=== PATIENT | male | born 1985 | race American Indian/Alaskan Native ===

== ENCOUNTER → 2020-10-31 14:46 | Outpatient (REF) | payer MEDICAID, SELFPAY | LOC: HO.SL 14:46 | PROVIDERS: PCP Family Medicine; Visit Provider Family Medicine | DX: G47.30 Sleep apnea, unspecified (principal) | CPT/HCPCS: 95806 ==

== ENCOUNTER 2020-12-10 21:04 | Emergency (ER) | payer MEDICAID, SELFPAY ==
--- NOTE | ~2020-12-10 | CT_ITS ---
EXAMINATION: CT ABDOMEN AND PELVIS WITHOUT CONTRAST CLINICAL INFORMATION: Right flank pain COMPARISON: CT abdomen December 22, 2006. Abdomen ultrasound October, TECHNIQUE: Multidetector volumetric imaging was performed from the superior aspect of the liver through the pubic symphysis. Sagittal and coronal reformatted images were obtained on the technologist's workstation. This CT examination was performed using dose optimization techniques as appropriate, variously including the following: *Automated exposure control *Adjustment of mA and/or kV according to patient size (this includes techniques or standardized protocols for targeted exams where dose is matched to indication/reason for exam; i.e. extremities or head) *Use of iterative reconstruction technique DLP: 659 mGy-cm FINDINGS: LUNG BASES: The visualized lung bases are unremarkable. LIVER, GALLBLADDER, AND BILIARY TREE: The liver is normal in size, shape, and attenuation. No focal hepatic lesion or biliary ductal dilatation is present. The gallbladder is unremarkable with no evidence of radiopaque gallstones, gallbladder wall thickening, or obvious pericholecystic inflammatory changes. PANCREAS: Unremarkable. SPLEEN: Unremarkable. ADRENAL GLANDS: Unremarkable. KIDNEYS AND URETERS: Right kidney: There is mild to moderate hydronephrosis of the right kidney with distention renal pelvis calyces and hydroureter to the ureterovesical junction. There is a 1 mm stone at the right UVJ. Coronal image 50/90 series 6. There is no additional stone in the ureter or kidney. Left kidney: No hydronephrosis. No renal or ureteral calculus. BLADDER: Unremarkable. GASTROINTESTINAL TRACT: The small and large bowel are unremarkable. The appendix is unremarkable. ABDOMINAL WALL: No significant hernia is appreciated. LYMPH NODES: Normal. VASCULAR: Unremarkable. PELVIC VISCERA: Unremarkable. OSSEOUS STRUCTURES: Unremarkable. CT/CT abdomen pelvis wo con IMPRESSION: Mild to moderate right-sided hydronephrosis with hydroureter. Obstructing 1 mm stone at the right ureterovesical junction.
[2020-12-10 21:06] VITALS: BP 117/69; PULSE 77; RESP 15; TEMP 37; O2SAT 98; BMI 30.7
[2020-12-10 21:25] LABS: Glucose Urine UA NEG (NEG); Leukocyte Esterase Urine NEG (NEG); Nitrite Urine NEG (NEG); Specific Gravity - Urine >= 1.030 (1.005-1.025); Urine Blood 2+ (NEG); Urine Ketones NEG (NEG); Urine Protein NEG (NEG-TRACE)
[2020-12-10 21:26] LABS: Appearance Urine CLEAR; Color Urine YELLOW
[2020-12-10 21:31] LABS: Bacteria Urine 1+ /LPF; Mucus Urine 2+ /LPF; Squamous Epithelial Cell Urine 1+ /LPF
[2020-12-10 22:18] LABS: MANUAL DIFF FLAG NO
--- NOTE | 2020-12-10 22:18 | PC.NURSE ---
PATIENT OBSERVED EATING DORITOS WHEN CALLED IN FOR BLOOD WORK.
[2020-12-10 22:20] LABS: Basophils Absolute Auto 0.1 X10*3/uL (0.0-0.2); Basophils Percent Auto 0.4 % (0-2); Eosinophils Absolute Auto 0.5 X10*3/uL (0.0-0.4); Eosinophils Percent Auto 4.4 % (0-4); Hematocrit 39.2 % (42-52); Hemoglobin 12.7 g/dl (14.0-18.0); Imm Gran Abs Auto 0.03 X10*3/uL (0.00-0.03); Imm Gran Pct Auto 0.3 % (0.0-0.4); Lymphocytes Absolute Auto 1.6 X10*3/uL (1.2-4.9); Lymphocytes Percent Auto 13.9 % (20-40); Mean Corpuscular HGB Conc 32.4 g/dl (31.0-36.0); Mean Corpuscular Hemoglobin 27.6 pg (27.0-33.0); Mean Corpuscular Volume 85.2 fL (80-98); Mean Platelet Volume 10.3 fL (9.4-12.4); Monocytes Absolute Auto 1.1 X10*3/uL (0.1-1.2); Monocytes Percent Auto 9.3 % (2-11); Neutrophils Absolute Auto 8.4 X10*3/uL (2.0-8.3); Neutrophils Percent Auto 71.7 % (45-73); Platelet Count 263 X10*3/uL (160-400); Red Cell Distribution Width 12.2 % (11.0-16.0); White Blood Count 11.8 X10*3/uL (4.8-10.8)
--- NOTE | 2020-12-10 22:35 | PC.NURSE ---
pt eating in waiting room no distress
[2020-12-10 22:48] LABS: Alanine Aminotransferase 20 U/L (0-40); Albumin Level 3.8 g/dL (3.5-5.0); Alkaline Phosphatase 109 U/L (39-117); Anion Gap 12 (12-20); Aspartate Amino Transferase 21 U/L (5-37); Bilirubin Total 0.3 mg/dL (0.0-1.0); Blood Urea Nitrogen 13 mg/dL (9-16); Carbon Dioxide 29 mmol/L (22-29); Chloride 103 mmol/L (96-108); Creatinine Clr Calc Pharmacy 110.6; Estimated Glomerular Filt Rate > 60; Glucose Random 99 mg/dL (60-115); Sodium 140 mmol/L (135-145); Total Protein 7.2 g/dL (6.5-8.0)
--- NOTE | 2020-12-10 23:09 | ED.ABDPAIN ---
HPI - Abdominal Pain General Chief Complaint: Abdominal Pain Stated Complaint: right sided pain Time Seen by Provider: 12/10/20 23:09 Source: patient Mode of arrival: ambulatory Limitations: no limitations History of Present Illness HPI narrative: Patient no significant past medical history complaining of right flank pain for last 3 days getting worse states all the time intermittently get worse still with nausea no hematuria no urinary complaints patient never had similar pain in the past no family history of kidney stone Related Data Previous Rx's Medication Instructions Recorded oxycodone 5 mg PO Q6H PRN #20 tab 12/11/20 tamsulosin [Flomax] 0.4 mg PO DAILY #7 cap 12/11/20 Allergies Allergy/AdvReac Type Severity Reaction Status Date / Time No Known Allergies Allergy Verified 12/10/20 21:12 [No Known Allergies*] Review of Systems Review of Systems Yes all other systems are reviewed and are negative Physical Exam Vital Signs: Vital Signs: Last Vital Signs Temp 98.6 F 12/10/20 21:06 Pulse 77 12/10/20 21:06 Resp 16 12/11/20 00:21 BP 117/69 12/10/20 21:06 Pulse Ox 98 12/10/20 21:06 Body Mass Index 30.7 Appearance: Alert. Oriented X3. In mild distress. Eyes: PERRLA, ENT: Pharynx normal. Oral Mucosa moist Neck: Normal inspection. Neck supple. CVS: Normal heart rate and rhythm. Pulses normal. Respiratory: No respiratory distress. Equal air entry bilateral, no wheezing/rales/rhonchi Abdomen: Soft and nontender. Bowel sounds are present, no mass palpable, right CVA tenderness Skin: Skin warm and dry. Normal skin color. Normal skin turgor. Extremities: No lower extremity edema. No calf tenderness Neuro: Oriented X 3. No motor deficit. MDM - Abdominal Pain MDM Narrative Medical decision making narrative: Patient with right flank pain CT scan showed 1 mm ureteral vesicle stone with mild hydro patient feeling much better after pain medication will discharge patient home Lab Data Attestation: I reviewed the patient's lab results. Result diagrams: 12/10/20 22:11 12/10/20 22:11 Labs: Lab Results 12/10/20 12/10/20 12/10/20 Range/Units 22:11 22:11 Unknown WBC 11.8 H (4.8-10.8) X10*3/uL RBC 4.60 (4.60-5.80) X10*6/uL Hgb 12.7 L (14.0-18.0) g/dl Hct 39.2 L (42-52) % MCV 85.2 (80-98) fL MCH 27.6 (27.0-33.0) pg MCHC 32.4 (31.0-36.0) g/dl RDW 12.2 (11.0-16.0) % Plt Count 263 (160-400) X10*3/uL MPV 10.3 (9.4-12.4) fL Immature Gran % (Auto) 0.3 (0.0-0.4) % Neut % (Auto) 71.7 (45-73) % Lymph % (Auto) 13.9 L (20-40) % Mcmullen % (Auto) 9.3 (2-11) % Eos % (Auto) 4.4 H (0-4) % Baso % (Auto) 0.4 (0-2) % Lymph # (Auto) 1.6 (1.2-4.9) X10*3/uL Mcmullen # (Auto) 1.1 (0.1-1.2) X10*3/uL Eos # (Auto) 0.5 H (0.0-0.4) X10*3/uL Baso # (Auto) 0.1 (0.0-0.2) X10*3/uL Abs Immat Gran (auto) 0.03 (0.00-0.03) X10*3/uL Absolute Neuts (auto) 8.4 H (2.0-8.3) X10*3/uL Absolute Nucleated RBC 0.000 (0.0-0.012) X10*3/uL Nucleated RBC % (auto) 0.0 (0.0-0.2) /100WBC Sodium 140 (135-145) mmol/L Potassium 4.0 (3.3-5.1) mmol/L Chloride 103 (96-108) mmol/L Carbon Dioxide 29 (22-29) mmol/L Anion Gap 12 (12-20) BUN 13 (9-16) mg/dL Creatinine 0.92 (0.5-1.4) mg/dL Estim Creat Clear Calc 110.6 Estimated GFR > 60 Random Glucose 99 (60-115) mg/dL Calcium 9.0 (8.4-10.2) mg/dL Total Bilirubin 0.3 (0.0-1.0) mg/dL AST 21 (5-37) U/L ALT 20 (0-40) U/L Alkaline Phosphatase 109 (39-117) U/L Total Protein 7.2 (6.5-8.0) g/dL Albumin 3.8 (3.5-5.0) g/dL Urine Color YELLOW Urine Appearance CLEAR Urine pH 6.0 (5.0-8.0) Ur Specific [place] >= 1.030 H (1.005-1.025) Urine Protein NEG (NEG-TRACE) MG/DL Urine Glucose (UA) NEG (NEG) MG/DL Urine Ketones NEG (NEG) MG/DL Urine Blood 2+ H (NEG) Urine Nitrite NEG (NEG) Ur Leukocyte Esterase NEG (NEG) Urine RBC 15-29 H (0) /HPF Urine WBC 1-4 (0-4) /HPF Ur Squamous Epith Cells 1+ /LPF Urine Bacteria 1+ /LPF Urine Mucus 2+ /LPF Discharge Plan Discharge Clinical Impression: Calculus of kidney Patient Disposition: Home, Self-Care Instructions: Kidney Stones (ED) Additional Instructions: Drink plenty of fluids. Take pain medication as prescribed. Follow with urologist if not better Your very small stone which likely to pass Prescriptions: New oxycodone 5 mg tablet 5 mg PO Q6H PRN (Reason: Pain (Scale Score 7-10)) Qty: 20 RF: 0 tamsulosin [Flomax] 0.4 mg capsule 0.4 mg PO DAILY Qty: 7 RF: 0 Referrals: Saul Ibarra MD [Physician] - 1 week [facility] Past Medical History Medical History No known health problems Surgical History No history of previous surgery Social History Social History Advance Directives: No Advance Directives Information Provided: No
[2020-12-11] MEDS: ondansetron HCL 4 MG/2 ML VIAL IVPUSH (00:17)
[2020-12-11] MEDS: Ketorolac Tromethamine 30 MG/ML VIAL IVPUSH (00:19)
[2020-12-11 00:21] VITALS: RESP 16
[2020-12-11] MEDS: Morphine Sulfate 4 MG/ML CARTRIDGE IVPUSH (00:21)
[2020-12-11] MEDS: 0.9 % Sodium Chloride 1,000 ML 999 ML IVCONT (00:22)
[2020-12-11] MEDS: Tamsulosin HCL 0.4 MG CAPSULE PO (01:14)
[2020-12-11 01:24] VITALS: RESP 16
[2020-12-11 01:25] VITALS: RESP 16
== END 2020-12-11 01:25 | disposition home or self-care (01) ==
PROVIDERS: Emergency Provider Internal Medicine
DX: N13.2 Hydronephrosis with renal and ureteral calculous obstruction (principal)
CPT/HCPCS: 36415; 74176; 80053; 81001; 85025; 96361; 96374; 96375; 99284; J1885; J2270; J2405

== ENCOUNTER 2023-02-07 12:08 | Outpatient (REF) | payer MEDICAID, SELFPAY ==
[2023-02-07 14:04] LABS: Alanine Aminotransferase 15 U/L (0-40); Albumin Level 4.4 g/dL (3.5-5.0); Alkaline Phosphatase 94 U/L (39-117); Aspartate Amino Transferase 24 U/L (5-37); Bilirubin Direct 0.2 mg/dL (0.0-0.5); Bilirubin Total 0.4 mg/dL (0.0-1.0); Total Protein 7.7 g/dL (6.5-8.0)
[2023-02-11 13:48] LABS: HCV Log PCR <1.18 NOT DETECTED Log IU/mL (NOT DETECTED); HepC Viral Load <15 NOT DETECTED IU/mL (NOT DETECTED)
== END 2023-02-07 12:09 | disposition home or self-care (01) ==
LOC: HO.HHCL 12:08
PROVIDERS: Visit Provider Family Medicine
DX: B18.2 Chronic viral hepatitis C (principal)
CPT/HCPCS: 36415; 80076; 87522

== ENCOUNTER 2024-01-17 15:48 | Emergency (ER) | payer MEDICAID, SELFPAY ==
--- NOTE | ~2024-01-17 | CT_ITS ---
EXAMINATION: CT FACIAL BONES WITH CONTRAST CLINICAL INFORMATION: R nasal maxillary pain, eval for abscess COMPARISON: None available. TECHNIQUE: Multidetector volumetric imaging was obtained through the facial bones following intravenous administration of 85 mL Omnipaque 350. Multiplanar reformatted images in coronal and sagittal orientations were submitted. This CT examination was performed using dose optimization techniques as appropriate, variously including the following: *Automated exposure control *Adjustment of mA and/or kV according to patient size (this includes techniques or standardized protocols for targeted exams where dose is matched to indication/reason for exam; i.e. extremities or head) *Use of iterative reconstruction technique DLP: 335 mGy-cm FINDINGS: Mucosal thickening is noted throughout the paranasal sinuses. 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 The right inferior turbinate is diminutive, likely due to partial erosion. No discrete abscess is identified. There is mucosal thickening in the maxillary sinuses. Paranasal sinuses are otherwise clear. Mastoid air cells are clear. No appreciable dental caries are apical periodontitis. Enlarged cervical lymph nodes are present bilaterally, most likely reactive in nature. No acute nasopharyngeal or pharyngeal abnormalities. Orbits are unremarkable. Imaged intracranial structures are unremarkable. Carotid vasculature is patent. Degenerative disc disease in the cervical spine is partially imaged. 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 No discrete abscess is identified. Surrounding mucosal thickening throughout the nasal cavities.
--- NOTE | 2024-01-17 16:05 | ED.GENADULT ---
HPI - General Adult General Chief complaint: Headache Stated complaint: headache Time Seen by Provider: 01/17/24 16:05 Source: patient and family Limitations: no limitations History of Present Illness HPI narrative: 38-year-old male who has a history of kidney stones, currently on methadone maintenance, history of cocaine abuse, presents for evaluation of right-sided facial pain and headache. Patient states his symptoms began on January 13. At that time he had snorted cocaine and was picking the right nare with his finger. He had mild discomfort at that time, episodes of epistaxis, however the next day he awoke with pain to the right side of his nose and progressively worsening headache. Since that time he has had continued and progressively worsening headache. Patient has been taking Tylenol ibuprofen which initially helped but is no longer helping. Patient states he has constant, 10/10 pressure and pain to the right side of his face extending to the right side of his head. Denies any visual changes. No tinnitus. No lightheadedness or dizziness. Denies any trauma. No fevers chills nausea or vomiting. He denies any history of similar symptoms. No history of headaches. He smokes tobacco. Occasional alcohol use. He is compliant with his methadone. He occasionally uses cocaine. Patient has otherwise been feeling well. Of note, patient had also been using Afrin which was making his symptoms worse. Related Data Previous Rx's ?Medication ?Instructions ?Recorded oxycodone 5 mg tablet 5 mg PO Q6H PRN Pain (Scale Score 12/11/20 7-10) #20 tabs tamsulosin 0.4 mg capsule (Flomax) 0.4 mg PO DAILY #7 caps 12/11/20 amoxicillin 500 mg-potassium 1 tab PO TID 7 days #21 tabs 01/17/24 clavulanate 125 mg tablet (Augmentin) naproxen 500 mg tablet 500 mg PO BID PRN pain 7 days #14 01/17/24 tabs Allergies Allergy/AdvReac Type Severity Reaction Status Date / Time No Known Allergies Allergy Verified 01/17/24 16:26 [No Known Allergies*] Review of Systems Constitutional: Constitutional: Denies chills, Denies fever(s) and Reports headache(s) Eyes: Eyes: Denies blurry vision, Denies change in vision and Denies other (No redness.) ENT: Denies dizziness, Reports headache(s), Reports epistaxis, Reports nasal congestion, Reports nasal discharge, Denies neck pain and Denies sore throat Cardiovascular: Cardiovascular: Denies chest pain, Denies dyspnea, Denies dyspnea on exertion and Denies orthopnea Respiratory: Respiratory: Denies cough, Denies dyspnea and Denies dyspnea on exertion Musculoskeletal: Musculoskeletal: Denies back pain, Denies muscle weakness, Denies neck pain and Denies numbness Integumentary/Breasts: Skin/Breast: Denies rash Neurologic: Denies dizziness, Reports headache(s), Denies focal weakness and Denies numbness Psychiatric: Psychiatric: Denies depression [facility] Past Medical History Attestation statement: The following information was validated with the patient. [facility] Narrative: Kidney stone Medical History No known health problems Surgical History No history of previous surgery Social History Social History Advance Directives: No Advance Directives Information Provided: No Do you have a plan to hurt others: No Plan Physical Exam ED Vital Signs: Vital Signs - 24 hr 01/17/24 16:21 01/17/24 20:00 Temperature 98.7 F 97.6 F Pulse Rate 65 51 Respiratory Rate 18 12 Blood Pressure 153/100 H 104/61 Pulse Oximetry 99 96 Oxygen Delivery Method Room Air Room Air BMI result Body Mass Index 32.7 Const Other: Appears uncomfortable General: alert and awake [facility] Other: Pupils are equal round and reactive to light. There is no nystagmus. There is no erythema to the bridge of the nose or nares or maxillary region. There is diffuse tenderness along the right maxillary and nasal region without any edema or erythema. There is exquisite tenderness to the right side of the nose. No fluctuance. The left naris is patent. There is partial loss of the superior aspect of the septum. The right nare demonstrates edematous and erythematous, slightly excoriated area. There is no active discharge or bleeding. There is no septal hematoma. Oropharynx is moist. There is no tongue elevation or edema. No tonsillar exudate. No hoarseness. Teeth are in good repair. There is no tenderness to tapping. Auditory canals are patent. TM is pearly white bilaterally. There is no mastoid tenderness bilaterally Neck Other: No Brudzinski Resp Other: Lung sounds are clear and equal bilaterally, no wheezes rales or rhonchi Cardio Rate: regular rate Rhythm: regular rhythm Course Course Course Narrative: 6:23 p.m. labs returned, no acute process. CT pending at this time. 8:10 p.m. patient is resting comfortably at this time. CT is pending at this time. 10:[address] returned, no evidence of abscess. Patient will be placed on antibiotics, Augmentin. He tolerated his 1st dose earlier as well as analgesia. Patient states he is feeling better. He remains hemodynamically stable and afebrile. He is neurologically intact. Reviewed all discharge instructions with the patient and his family member. They expressed understanding of all discharge instructions and have no further questions at this time. Medications Administered Discontinued Medications Generic Name Dose Route Start Last Admin Trade Name Freq PRN Reason Stop Dose Admin Sodium Chloride 1,000 mls @ 999 mls/hr 01/17/24 16:45 01/17/24 20:39 Ns IV 01/17/24 17:45 Infused .Q1H1M DEL Infusion Ceftriaxone Sodium 1 gm/ 50 mls @ 100 mls/hr 01/17/24 16:42 01/17/24 18:10 Sodium Chloride IV 01/17/24 17:11 Infused ONCE ONE Infusion Iohexol 85 ml 01/17/24 19:26 01/17/24 19:26 Iohexol 350 Mg/Ml 100 Ml Infus..Btl IV 01/17/24 19:27 85 ml ONCE ONE Administration Ketorolac Tromethamine 15 mg 01/17/24 16:35 01/17/24 18:00 Ketorolac Tromethamine 15 Mg/Ml Vial IVPUSH 01/17/24 16:36 15 mg ONCE ONE Administration Morphine Sulfate 4 mg 01/17/24 20:52 01/17/24 21:06 Morphine Sulfate 4 Mg/Ml Cartridge IVPUSH 01/17/24 20:53 4 mg ONCE ONE Administration Protocol Medical Decision Making Medical Decision Making MDM Narrative: 38-year-old male with a 3 day history of right-sided nasal, facial pain with associated headache. Likely due to recent digital trauma and snorting cocaine. The patient is hemodynamically stable and he is afebrile. Concern for possible sinusitis or abscess or possibly necrotic area. Check labs, imaging. Patient will be provided with analgesia. Less likely migraine headache given that patient does not have a history. He does not have any other infectious signs or symptoms. Localized to the right side of the nose and face. Differential Diagnosis Differential Diagnoses: The differential diagnosis associated with the presentation includes Sinus abscess Necrotic sinus Nasal abscess Bacteremia Admission/Observation Consideration of admission/observation: Escalation of care including admission/observation considered Lab Data MDM Lab Attestation statement: I reviewed the patient's lab results. 01/17/24 17:13 01/17/24 17:13 Labs: Lab Results 01/17/24 Range/Units 17:13 WBC 10.4 (4.8-10.8) X10*3/uL RBC 4.98 (4.60-5.80) X10*6/uL Hgb 13.9 L (14.0-18.0) g/dl Hct 41.8 L (42.0-52.0) % MCV 83.9 (80.0-98.0) fL MCH 27.9 (27.0-33.0) pg MCHC 33.3 (31.0-36.0) g/dl RDW 12.6 (11.0-16.0) % Plt Count 252 (160-400) X10*3/uL MPV 10.5 (9.4-12.4) fL Immature Gran % (Auto) 0.3 (0.0-0.4) % Neut % (Auto) 60.3 (45-73) % Lymph % (Auto) 22.1 (20-40) % Todd % (Auto) 9.3 (2-11) % Eos % (Auto) 7.4 H (0-4) % Baso % (Auto) 0.6 (0-2) % Lymph # (Auto) 2.3 (1.2-4.9) X10*3/uL Todd # (Auto) 1.0 (0.1-1.2) X10*3/uL Eos # (Auto) 0.8 H (0.0-0.4) X10*3/uL Baso # (Auto) 0.1 (0.0-0.2) X10*3/uL Abs Immat Gran (auto) 0.03 (0.00-0.03) X10*3/uL Absolute Neuts (auto) 6.3 (2.0-8.3) x10*3/uL Absolute Nucleated RBC 0.000 (0.0-0.012) X10*3/uL Nucleated RBC % (auto) 0.0 (0.0-0.2) /100WBC Sodium 139 (135-145) mmol/L Potassium 4.1 (3.3-5.1) mmol/L Chloride 105 (96-108) mmol/L Carbon Dioxide 25 (22-29) mmol/L Anion Gap 13 (12-20) BUN 10 (9-16) mg/dL Creatinine 0.73 (0.5-1.4) mg/dL Estim Creat Clear Calc 139.4 Estimated GFR > 60 Random Glucose 107 (60-115) mg/dL Lactic Acid 0.8 (0.5-2.0) mmol/L Calcium 9.6 D (8.4-10.2) mg/dL Total Bilirubin 0.3 (0.0-1.0) mg/dL AST 13 (5-37) U/L ALT 9 (0-40) U/L Alkaline Phosphatase 102 (39-117) U/L Total Protein 8.1 H (6.5-8.0) g/dL Albumin 4.1 (3.5-5.0) g/dL Radiology Impression Discussion of test interpretation with radiology: I have reviewed the radiologist's reading. Radiologist Impression: [place] [id number] CT Scan Report Signed Patient: Eliseo Baker MR#: [id number] : 1985 Acct:[id number] Age/Sex: 38 / M ADM Date: 01/17/24 Loc: HO.ED Attending Dr: Ordering Physician: Floyd Tucker Date of Service: 01/17/24 Procedure(s): CT facial bones w IV con Accession Number(s): [id number] cc: [facility]; Floyd Tucker~ EXAMINATION: CT FACIAL BONES WITH CONTRAST CLINICAL INFORMATION: R nasal maxillary pain, eval for abscess COMPARISON: None available. TECHNIQUE: Multidetector volumetric imaging was obtained through the facial bones following intravenous administration of 85 mL Omnipaque 350. Multiplanar reformatted images in coronal and sagittal orientations were submitted. This CT examination was performed using dose optimization techniques as appropriate, variously including the following: *Automated exposure control *Adjustment of mA and/or kV according to patient size (this includes techniques or standardized protocols for targeted exams where dose is matched to indication/reason for exam; i.e. extremities or head) *Use of iterative reconstruction technique DLP: 335 mGy-cm FINDINGS: Mucosal thickening is noted throughout the paranasal sinuses. 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 The right inferior turbinate is diminutive, likely due to partial erosion. No discrete abscess is identified. There is mucosal thickening in the maxillary sinuses. Paranasal sinuses are otherwise clear. Mastoid air cells are clear. No appreciable dental caries are apical periodontitis. Enlarged cervical lymph nodes are present bilaterally, most likely reactive in nature. No acute nasopharyngeal or pharyngeal abnormalities. Orbits are unremarkable. Imaged intracranial structures are unremarkable. Carotid vasculature is patent. Degenerative disc disease in the cervical spine is partially imaged. 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 No discrete abscess is identified. Surrounding mucosal thickening throughout the nasal cavities. Dictated By: Rajesh Avilez MD Signed By: <Electronically signed by Rajesh Avilez MD in OV> 01/17/242116 DD/ 28 TD/TT: [employer] Specialist: DARÍO Independent Historian Clinical information obtained from an independent historian. History obtained from or confirmed by: Friend Prescription Management I considered prescription management with: Pain Medication and Antibiotic Social Determinants Patient?s care significantly limited by Social Determinants of Health including: Alcoholism and drug addiction in family Discharge Plan Discharge Clinical Impression: Facial pain, Cocaine abuse Sinusitis Qualifiers: Sinusitis location: unspecified location Chronicity: acute Recurrence: non-recurrent Qualified Code(s): J01.90 - Acute sinusitis, unspecified Patient Disposition: Home, Self-Care Instructions: Cocaine Abuse (ED), Rhinosinusitis (ED) Additional Instructions: Augmentin as directed. Finish all antibiotics. Naproxen as directed for pain and inflammation. Take with food. You may use nasal spray to help moisturize the sinuses. Avoid all cocaine use. Do NOT use Afrin as this could make it worse. Follow-up with ENT specialist Follow-up with your primary care provider. Call this week to schedule a follow-up appointment. Return to the emergency department if you have any worsening of symptoms, or any concerns. Get well soon! Prescriptions: New amoxicillin-pot clavulanate [Augmentin] 500-125 mg tablet 1 tab PO TID 7 Days Qty: 21 0RF naproxen 500 mg tablet 500 mg PO BID PRN (Reason: pain) 7 Days Qty: 14 0RF Rx Instructions: Take with food. No Action oxycodone 5 mg tablet 5 mg PO Q6H PRN (Reason: Pain (Scale Score 7-10)) Qty: 20 0RF tamsulosin [Flomax] 0.4 mg capsule 0.4 mg PO DAILY Qty: 7 0RF Referrals: Arcelia Coe MD [Physician] - 1 week Print Language: Algerian
[2024-01-17 16:21] VITALS: BP 153/100; PULSE 65; RESP 18; TEMP 37.1; O2SAT 99; BMI 32.7
[2024-01-17 17:20] LABS: MANUAL DIFF FLAG NO
[2024-01-17 17:28] LABS: Basophils Absolute Auto 0.1 X10*3/uL (0.0-0.2); Basophils Percent Auto 0.6 % (0-2); Eosinophils Absolute Auto 0.8 X10*3/uL (0.0-0.4); Eosinophils Percent Auto 7.4 % (0-4); Hematocrit 41.8 % (42.0-52.0); Hemoglobin 13.9 g/dl (14.0-18.0); Imm Gran Abs Auto 0.03 X10*3/uL (0.00-0.03); Imm Gran Pct Auto 0.3 % (0.0-0.4); Lymphocytes Absolute Auto 2.3 X10*3/uL (1.2-4.9); Lymphocytes Percent Auto 22.1 % (20-40); Mean Corpuscular HGB Conc 33.3 g/dl (31.0-36.0); Mean Corpuscular Hemoglobin 27.9 pg (27.0-33.0); Mean Corpuscular Volume 83.9 fL (80.0-98.0); Mean Platelet Volume 10.5 fL (9.4-12.4); Monocytes Percent Auto 9.3 % (2-11); Neutrophils Absolute Auto 6.3 x10*3/uL (2.0-8.3); Neutrophils Percent Auto 60.3 % (45-73); Platelet Count 252 X10*3/uL (160-400); Red Blood Count 4.98 X10*6/uL (4.60-5.80); Red Cell Distribution Width 12.6 % (11.0-16.0); White Blood Count 10.4 X10*3/uL (4.8-10.8)
[2024-01-17 17:32] LABS: Lactic Acid 0.8 mmol/L (0.5-2.0)
[2024-01-17 17:37] LABS: Alanine Aminotransferase 9 U/L (0-40); Albumin Level 4.1 g/dL (3.5-5.0); Alkaline Phosphatase 102 U/L (39-117); Anion Gap 13 (12-20); Aspartate Amino Transferase 13 U/L (5-37); Bilirubin Total 0.3 mg/dL (0.0-1.0); Blood Urea Nitrogen 10 mg/dL (9-16); Calcium 9.6 mg/dL (8.4-10.2); Carbon Dioxide 25 mmol/L (22-29); Chloride 105 mmol/L (96-108); Creatinine Clr Calc Pharmacy 139.4; Estimated Glomerular Filt Rate > 60; Glucose Random 107 mg/dL (60-115); Potassium 4.1 mmol/L (3.3-5.1); Sodium 139 mmol/L (135-145); Total Protein 8.1 g/dL (6.5-8.0)
[2024-01-17] MEDS: Ketorolac Tromethamine 15 MG/ML VIAL IVPUSH (18:00)
[2024-01-17] MEDS: cefTRIAXone sodium 1 GM in 0.9 % Sodium Chloride 50 ML IV (18:03)
[2024-01-17] MEDS: 0.9 % Sodium Chloride 1,000 ML 999 ML IV (18:13)
[2024-01-17] MEDS: iohexoL 350 MG/ML 100 ML INFUS..BTL 85 ML IV (19:26)
[2024-01-17 20:00] VITALS: BP 104/61; PULSE 51; RESP 12; TEMP 36.4; O2SAT 96
[2024-01-17] MEDS: Morphine Sulfate 4 MG/ML CARTRIDGE IVPUSH (21:06)
[2024-01-17 22:25] VITALS: BP 121/79; PULSE 53; RESP 16; TEMP 36.7; O2SAT 99
[2024-01-17 22:32] VITALS: BP 121/79; PULSE 53; RESP 16; TEMP 36.7; O2SAT 99
== END 2024-01-17 22:32 | disposition home or self-care (01) ==
PROVIDERS: Physician Assistant; Emergency Provider Emergency Medicine
DX: F14.10 Cocaine abuse, uncomplicated (principal); R51.9 Headache, unspecified; J01.90 Acute sinusitis, unspecified
CPT/HCPCS: 36415; 70487; 80053; 83605; 85025; 96361; 96374; 96375; 99284; J0696; J1885; J2270; Q9967

== ENCOUNTER 2024-04-23 17:46 | Emergency (ER) | payer OTHER, SELFPAY ==
[2024-04-23 18:19] VITALS: BP 125/73; PULSE 80; RESP 16; TEMP 36.8; O2SAT 100; BMI 32.4
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
[2024-04-23 20:02] VITALS: BP 118/74; PULSE 65; RESP 16; TEMP 36.9; O2SAT 98
[2024-04-23 20:04] VITALS: BP 118/74; PULSE 65; RESP 16; TEMP 36.9; O2SAT 98
== END 2024-04-23 20:05 | disposition home or self-care (01) ==
PROVIDERS: Emergency Provider Internal Medicine
DX: S16.1XXA Strain of muscle, fascia and tendon at neck level, initial encounter (principal); S46.911A Strain of unspecified muscle, fascia and tendon at shoulder and upper arm level, right arm, initial encounter; V43.62XA Car passenger injured in collision with other type car in traffic accident, initial encounter; Y93.89 Activity, other specified; Y92.414 Local residential or business street as the place of occurrence of the external cause; Y99.9 Unspecified external cause status
CPT/HCPCS: 99283

== ENCOUNTER 2024-05-27 11:31 | Outpatient (REF) | payer OTHER, SELFPAY ==
[2024-05-27 13:32] LABS: Cholesterol 194 mg/dL (<200); HDL Cholesterol 58 mg/dL (>40); LDL Cholesterol Calculated 121 mg/dL (<100); Triglycerides 75 mg/dL (<150)
== END 2024-05-27 11:32 | disposition home or self-care (01) ==
LOC: HO.HHCL 11:31
PROVIDERS: Visit Provider Registered Nurse
DX: I10 Essential (primary) hypertension (principal)
CPT/HCPCS: 36415; 80061

== ENCOUNTER 2024-11-19 13:39 | Outpatient (REF) | payer MEDICAID, SELFPAY ==
--- OUTSIDE RECORDS SUMMARY | 2024-11-19 09:15 | XMS_ITS | Encounter Summary ---
Author Organization [employer] Address [address] [place] [address] [address] [place] [address] Care Team Providers Care Director Targeted Marketing Name Role Phone [facility] Primary Care Provider [phone] Reason for Visit * Reason Comments Follow-up Encounter Details Date Type Department Care Team ([facility] Contact Info) Description 11/19/2024 9:15 AM EDT Office Visit [facility] [address] [place], [place] [id number] [facility] [address] [place] [address] Polyuria (Primary Dx); Dietary counseling; Exercise counseling; Class 1 obesity due to excess calories with serious comorbidity and body mass index (BMI) of 32.0 to 32.9 in adult; Tobacco use; Encounter for immunization Social History Tobacco Use Types Packs/Day Years Used Date Smoking Tobacco: Every Day Cigarettes Smokeless Tobacco: Never Tobacco Cessation:Ready to Q uit: Not Asked; Counseling Given: Not Answered Alcohol Use Standard Drinks/Week Comments Yes 2 (1 standard drink = 0.6 oz pur e alcohol) once a month Depression Answer Date Recorded Patient Health Questionnaire-9 Score 0 11/19/2024 Patient Health Questionnaire-9 Score 0 11/19/2024 Last PHQ-9: Questionnaire Data Not on file 0 11/19/2024 Housing Stability Answer Date Recorded What is your housing situation today? I have dilcia luna 11/19/[address] you li ve. Do you have problems with any of the following? None of the above 11/19/2024 Food Insecurity Answer Date Recorded Within the past 12 months, y ou worried that your food would run out before you got money to buy more: Never True 11/10/2024 Within the past 12 months,th e food you bought just didn't last and you didn't have enough money to get more: Never True 04/2025 Transportation Answer Date Recorded In the past 12 months, has l ack of transportation kept you from medical appts, meetings, work or from getting things needed for daily living? No 11/19/2024 Utilities Answer Date Recorded In the past 12 months, has t he [employer], gas, oil or water [employer] threatened to shut off services in your home? No 11/10/2024 Depression Answer Date Recorded Patient Health Questionnaire-2 Score 0 11/19/2024 Internet Access Answer Date Recorded Internet Access Q1 Yes 11/10/2024 Internet Access Q2 Not on file 11/10/2024 Sex and Gender Information Value Date Recorded Sex Assigned at Male 04/01/2022 10:17 AM EDT Legal Sex Male 10:17 AM EDT Gender Identity Male 04/01/2022 10:17 AM EDT Sexual Orientation Straight 04/01/2022 10 :17 AM EDT documented as of this encounter Last Filed Vital Signs Vital Sign Reading Time Taken Comments Blood Pressure 132/88 11/19/2024 9:28 AM EDT Pulse 86 11/19/2024 9:28 AM EDT Temperature 36.2 C (97.2 F) 11/19/2024 9:28 AM EDT Respiratory Rate 20 11/19/2024 9:28 AM EDT Oxygen Saturation - - Inhaled Oxygen Concentration - - Weight 92.4 kg (203 lb 12.8 oz) 11/19/2024 9:28 AM EDT Height 167.6 cm (5' 6 ) 11/19/2024 9:28 AM EDT Body Mass Index 32.89 11/19/2024 9:28 AM EDT documented in this encounter Functional Status * Over the past 2 weeks, how often have you been bothered by any of the following problems? Question Answer Date of Assessment Author Patient Health Questionnaire-2 Score 0 11/19/2024 9:33 AM EDT Pamela Corrigan MA * Little interest or pleasure in doing things Answer Date of Assessment Author Not at all 11/19/2024 9:33 AM Pamela Davis MA * Feeling down, depressed, or hopeless Answer Date of Assessment Author Not at all 11/19/2024 9:33 AM Pamela Davis MA * Trouble falling or staying asleep, or sleeping too much Answer Date of Assessment Author Not at all 11/19/2024 9:33 AM Pamela Davis MA * Feeling tired or having little energy Answer Date of Assessment Author Not at all 11/19/2024 9:33 AM Pamela Davis MA * Poor appetite or overeating Answer Date of Assessment Author Not at all 11/19/2024 9:33 AM Pamela Davis MA * Feeling bad about yourself - or that you are a failure or have let yourself or your family down Answer Date of Assessment Author Not at all 11/19/2024 9:33 AM Pamela Davis MA * Trouble concentrating on things, such as reading the newspaper or watching television Answer Date of Assessment Author Not at all 11/19/2024 9:33 AM Pamela Davis MA * Moving or speaking so slowly that other people could have noticed? Or the opposite - being so fidgety or restless that you have been moving around a lot more than usual. Answer Date of Assessment Author Not at all 11/19/2024 9:33 AM Pamela Davis MA * Thoughts that you would be better off or hurting yourself in some way Answer Date of Assessment Author Not at all 11/19/2024 9:33 AM Pamela Davis MA * Patient Health Questionnaire-9 Score Answer Date of Assessment Author 0 11/19/2024 9:33 AM Pamela Davis MA * Over the last 2 weeks, how often have you been bothered by any of the following problems? Question Answer Date of Assessment Author Feeling nervous, anxious, or on edge 0 11/19/2024 9:33 AM Pamela Thomson MA Not being able to stop or control worrying 0 11/19/2024 9:33 AM EDT Pamela Corrigan MA Worrying too much about different things 0 11/19/2024 9:33 AM EDT Pamela Corrigan MA Trouble relaxing 0 11/19/2024 9:33 AM EDT Pamela Borrero MA Being so restless that it is hard to sit still 0 11/19/2024 9:33 AM EDT Pamela Corrigan MA Becoming easily annoyed or irritable 0 11/19/2024 9:33 AM EDT Pamela Corrigan MA Feeling afraid as if something awful might happen 0 11/19/2024 9:33 AM EDT Pamela Shaikh MA LÓPEZ-7 Total Score 0 11/19/2024 9:33 AM EDT Pamela Corrigan MA documented as of this encounter Plan of Treatment Scheduled Orders Name Type Priority Associated Diagnoses Orde r Schedule Comprehensive Metabolic Panel Lab Routine Polyuria Expected: 11/19/2024 (Approximate), Expires: 11/19/2025 Urinalysis, Complete, with Reflex to Culture Lab Routine Polyuria Expected: 11/19/2024 (Approximate), Expires: 11/19/2025 Chlamydia/N. Gonorrhoeae RNA, TMA, Urogenitial Microbiology Routine Polyuria Expected: 11/19/2024 (Approximate), Expires: 11/19/2025 Hemoglobin A1c Lab Routine Polyuria Expected: 11/19/2024 (Approximate), Expires: 11/19/2025 documented as of this encounter Visit Diagnoses Diagnosis Polyuria- Primary Dietary counseling Dietary surveillance and counseling Exercise counseling Class 1 obesity due to excess calories with serious comorbidity and body mass index (BMI) of 32.0 to 32.9 in adult Tobacco use Encounter for immunization documented in this encounter Additional Health Concerns Assessment Noted Time PHQ-9 Depression Total Score: 0 11/20/19 9:33 AM EDT documented as of this encounter Care Teams Director Targeted Marketing Relationship Specialty Start Date End Date Haley Pizarro FNP [address] [place] [id number] PCP - General Family Medicine 12/07/21 documented as of this encounter
[2024-11-19 16:21] LABS: Appearance Urine Clear; Color Urine Yellow; Glucose Urine UA Negative (Negative); Leukocyte Esterase Urine Negative (Negative); Nitrite Urine Negative (Negative); Specific Gravity - Urine 1.025 (1.005-1.025); UMIC TRIGGER UACC YES; Urine Blood Trace (Negative); Urine Ketones Negative (Negative); Urine Protein Negative (Neg-Trace)
[2024-11-19 16:24] LABS: Bacteria Urine None Seen (None Seen); Hyaline Casts Urine 0-2 /LPF (0-2); Squamous Epithelial Cell Urine 0-2 /HPF (0-2); WBC Urine 0-5 /HPF (0-5)
[2024-11-19 16:29] LABS: Alanine Aminotransferase 37 U/L (0-40); Albumin Level 4.8 g/dL (3.5-5.0); Alkaline Phosphatase 98 U/L (39-117); Anion Gap 9 (12-20); Aspartate Amino Transferase 35 U/L (5-37); Bilirubin Total 0.1 mg/dL (0.0-1.0); Blood Urea Nitrogen 11 mg/dL (9-16); Calcium 9.5 mg/dL (8.4-10.2); Carbon Dioxide 32 mmol/L (22-29); Chloride 104 mmol/L (96-108); Cholesterol 177 mg/dL (<200); Estimated Glomerular Filt Rate > 60; Glucose Random 96 mg/dL (60-115); HDL Cholesterol 56 mg/dL (>40); LDL Cholesterol Calculated 108 mg/dL (<100); Potassium 4.2 mmol/L (3.3-5.1); Sodium 141 mmol/L (135-145); Total Protein 7.8 g/dL (6.5-8.0); Triglycerides 65 mg/dL (<150)
[2024-11-19 16:36] LABS: Estimated Average Glucose 100 mg/dL; Hemoglobin A1c % 5.1 % (<6.0); Total Hemoglobin (HGBA1C) 3766.0106 umol/L
[2024-11-19 17:52] LABS: CT PCR NOT DETECTED (Not Detect.); NG PCR NOT DETECTED (Not Detect.)
[2024-11-22 08:43] LABS: HCV Log PCR <1.18 NOT DETECTED Log IU/mL (NOT DETECTED); HepC Viral Load <15 NOT DETECTED IU/mL (NOT DETECTED)
== END 2024-11-19 13:40 | disposition home or self-care (01) ==
LOC: HO.HHCL 13:39
PROVIDERS: PCP Registered Nurse; Visit Provider Registered Nurse
DX: R35.89 Other polyuria (principal); I10 Essential (primary) hypertension; B18.2 Chronic viral hepatitis C
CPT/HCPCS: 80053; 80061; 81001; 83036; 87491; 87522; 87591

== ENCOUNTER 2025-03-27 04:23 | Emergency (ER) | payer MEDICAID, SELFPAY ==
[2025-03-27 04:29] VITALS: BP 136/90; PULSE 87; RESP 16; TEMP 36.7; O2SAT 95; BMI 31.6
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
--- OUTSIDE RECORDS SUMMARY | 2025-03-27 04:48 | XMS_ITS | Clinical Summary ---
Author Organization [employer] [facility] Address [address] [place] [id number] Phone Care Team Providers Care Electrical And Radio Mock Up Mechanic Name Role Phone Guerrero Arriaga MD Primary Care Provider Allergies No known active allergies Medications No known medications Social History Tobacco Use Types Packs/Day Years Used Date Smoking Tobacco: Some Days Alcohol Use Standard Drinks/Week Comments Yes 0 (1 standard drink = 0.6 oz pur e alcohol) Sex and Gender Information Value Date Recorded Sex Assigned at Male 06/09/2017 9:38 AM EST Legal Sex Male 1:58 AM EST Gender Identity Male 06/09/2017 9:38 AM EST Sexual Orientation Choose not to disclose 2017 9:38 AM EST Last Filed Vital Signs Vital Sign Reading Time Taken Comments Blood Pressure 129/65 04/06/2017 3:00 AM EST Pulse 91 04/06/2017 2:07 AM EST Temperature 37.2 C (99 F) 04/06/2017 2:07 AM EST Respiratory Rate 18 04/06/2017 2:07 AM EST Oxygen Saturation 98% 04/06/2017 3:00 AM EST Inhaled Oxygen Concentration - - Weight 72.6 kg (160 lb) 04/06/2017 2:07 AM EST Height 165.1 cm (5' 5 ) 04/06/2017 2:07 AM EST Body Mass Index 26.63 04/06/2017 2:07 AM EST Plan of Treatment Not on file Medical Devices Not on file Insurance [facility] [place] [address] [address] [place] [address] [place] [address] [place] [address] [employer] [facility] [place] [address] [place] [address] [place] [address] [place] [address] [employer] Member Subscriber Plan / Payer (Ef fective 2017-Present) Name:Eliseo Baker Relation to Subscriber:Self Name:BakerEliseo Payer ID:[id number] Group ID:Not on file Type:Medicaid Address: [id number] [place] [address] [employer] [facility] Care Teams Electrical And Radio Mock Up Mechanic Relationship Specialty Start Date End Date Guerrero Arriaga MD [address] [place] [address] [place] [address] PCP - General Internal Medicine 04/06/17 Additional Source Comments The information contained in this document represents components of the legal health record. It is not the complete legal health record.[facility]
--- OUTSIDE RECORDS SUMMARY | 2025-03-27 04:48 | XMS_ITS | Clinical Summary ---
Author Organization [facility] Address [address] [place] [address] Care Team Providers Care Inspector Barrel Name Role Phone Unavailable Primary Care Provider Unavailabl e Social History Tobacco Use Types Packs/Day Years Used Date Smoking Tobacco: Never Assessed Sex and Gender Information Value Date Recorded Sex Assigned at Not on file Legal Sex Male 1:03 PM EST Gender Identity Not on file Sexual Orientation Not on file Plan of Treatment Health Maintenance Due Date Last Done Comments DTaP,Tdap,and Td Vaccines (1 - Tdap) 08/04/2003 Hepatitis B Vaccines (1 of 3 - 19+ 3-dose series) 08/04/2003 HPV Vaccines (1 - 3-dose SCD M series) 08/04/2011 Depression Screening 06/02/2024 COVID-19 Vaccine (1 - 2023-2 5 season) 2025 Influenza Vaccine (#1) 2025 RSV Immunization Adult Patie nts (1 - 1-dose 75+ series) 08/04/2059 HIB Vaccines Aged Out No longer eligi ble based on patient's age to complete this topic Hepatitis A Vaccines Aged Out No long er eligible based on patient's age to complete this topic IPV Vaccines Aged Out No longer eligi ble based on patient's age to complete this topic MMR Vaccines Aged Out No longer eligi ble based on patient's age to complete this topic Meningococcal ACWY Vaccine Aged Out N o longer eligible based on patient's age to complete this topic Meningococcal B Vaccine Aged Out No l onger eligible based on patient's age to complete this topic Pneumococcal Vaccine: Pediat rics (0 to 5 Years) and At-Risk Patients (6 to 49 Years) Aged Out No longer eligible b ased on patient's age to complete this topic RSV Immunization Patients Un pari 20 months Aged Out No longer eligible b ased on patient's age to complete this topic Varicella Vaccines Aged Out No longer eligible based on patient's age to complete this topic
--- OUTSIDE RECORDS SUMMARY | 2025-03-27 04:48 | XMS_ITS | Clinical Summary ---
Author Organization [employer] Address [address] [facility] [address] [place] [address] Care Team Providers Care Activities Counselor Name Role Phone Haley Pizarro Primary Care Provider [phone] Allergies No known active allergies Medications naloxone (Narcan) 4 mg/0.1 mL nasal spray PLEASE SEE ATTACHED FOR DETAILED DIRECTIONS 2 Active betamethasone valerate (Valisone) 0.1 % ointment APPLY THIN COAT TO AFFECTED AREA TWICE A DAY 2 Active famotidine (Pepcid) 20 MG tabletIndications :Heartburn Take 1 tablet (20 mg) by mouth 2 times daily. 60 tablet 2 3 Active docusate sodium (Colace) 100 MG capsuleIndication s:Constipation, unspecified constipation type Take 1 capsule (100 mg) by mouth if needed each day for constipation. 90 capsule 2 3 Active triamcinolone (Kenalog) 0.1 % ointmentIndicatio ns:Dry skin dermatitis Apply topically 2 times daily. For 2 weeks 15 g 4 Active nicotine (Nicoderm CQ) 21 MG/24HR patchIndications: Tobacco use Place 1 patch on the skin 1 (one) time each day at the same time. 30 patch 5 Active nicotine (Nicoderm CQ) 21 MG/24HR patchIndications: Tobacco use Place 1 patch on the skin 1 (one) time each day at the same time. 30 patch 2 5 Active nicotine polacrilex (Commit) 4 MG lozengeIndication s:Tobacco use Dissolve 1 lozenge (4 mg) in the mouth every 2 (two) hours if needed for smoking cessation. 100 lozenge 1 5 Active olmesartan (BENIcar) 5 MG tabletIndications :Essential hypertension TAKE 1 TABLET BY MOUTH EVERY DAY IN THE MORNING 90 tablet 5 Active Active Problems Problem Noted Date Diagnosed Date Hepatitis C virus infection cured after antiviral drug therapy 03/06/2023 Substance use disorder 12/13/2022 Overview (12/13/2022): - Stable on methadone Tobacco use 08/16/2022 Overview (12/13/2022): 1/2 PPD Previous nightmares with patch Assessment & Plan (03/19/2023 11:39 PM EDT): Pt requests to trial nicotrol inhalers Rx sent to pharmacy Assessment & Plan (12/13/2022 2:08 PM EDT): Patient will trail patch again, removing at night Accepts referral to pharmacy for smoking cessation Hyperlipidemia 08/16/2022 Overview (12/13/2022): ASCVD Risk score: 4.3% 06/2022; Assessment & Plan (03/19/2023 11:39 PM EDT): Continue lifestyle recommendations Will repeat FLP at routine follow up Essential hypertension 07/24/2022 Overview (03/19/2023): Olmesartan 5mg daily Maintenance: BMP: 06/2022 Lipid Panel: 06/2022 EKG: Obtain baseline at f/u - Aerobic exercise to reduce BP. Initial goal of 30 min walk 3-5x/week. Increase as tolerated. - low-sodium diet (goal: <2g/day) and heart healthy diet such as DASH to reduce BP and prevent ASCVD. - Home BP monitoring 1-2 x day with goal of <140/90. - Seek immediate medical attention for chest pain, palpitations, SOB, syncope, or sudden changes in mental status. - Do not change or discontinue current prescriptions without first consulting health care provider - Aerobic exercise to reduce BP. Initial goal of 30 min walk 3-5x/week. Increase as tolerated. - low-sodium diet (goal: <2g/day) and heart healthy diet such as DASH to reduce BP and prevent ASCVD. - Home BP monitoring 1-2 x day with goal of <140/90. - Seek immediate medical attention for chest pain, palpitations, SOB, syncope, or sudden changes in mental status. - Do not change or discontinue current prescriptions without first consulting health care provider Assessment & Plan (03/19/2023 11:38 PM EDT): Well controlled Continue current regimen Plan to repeat labs at routine follow up Assessment & Plan (12/13/2022 2:06 PM EDT): Well controlled Continue current regimen Chronic hepatitis C without hepatic coma 023 Overview (12/13/2022): Complete treatment with Epclusa 09/2022 Due for test of cure 12/2022 Health care maintenance 06/25/2022 Overview (12/13/2022): A1c- 5.2% 06/2022 Heartburn 06/25/2022 Resolved Problems Problem Noted Date Diagnosed Date Resolved Date Elevated BP without diagnosis of hypertension 06/25/19 23 08/16/2022 Encounters Date Type Department Care Team Description 03/17/2025 Telephone [facility] [address] [place] [id number] [facility] recall from Last 3 Months Immunizations Immunization Administration Dates Next Due HPV 9-Valent 05/16/2022,01/01/2022,11/01/2021 Hep B, adult 01/13/2023,12/13/2022 Tdap 11/19/2024,06/11/2008 Social History Tobacco Use Types Packs/Day Years [...] the past 12 months, has t he electric, gas, oil or water company threatened to shut off services in your [...] Orientation Straight 04/01/2022 10 :17 AM EDT Last Filed Vital Signs Vital Sign Reading Time Taken Comments Blood Pressure 132/88 11/19/2024 9:28 AM EDT Pulse 86 11/19/2024 9:28 AM EDT Temperature 36.2 C (97.2 F) 11/19/2024 9:28 AM EDT Respiratory Rate 20 11/19/2024 9:28 AM EDT Oxygen Saturation 98% 03/19/2023 2:06 PM EDT Inhaled Oxygen Concentration - - Weight 92.4 kg (203 lb 12.8 oz) 11/19/2024 9:28 AM EDT Height 167.6 cm (5' 6 ) 11/19/2024 9:28 AM EDT Body Mass Index 32.89 11/19/2024 9:28 AM EDT Plan of Treatment Upcoming Encounters Date Type Department Care Team (Late st Contact Info) Description 04/15/2025 11:15 AM EST Office Visit [facility] [address] [place] [address] Haley Pizarro [employer]INE[employer] [address] [place], [place] [phone] 04/20/2025 8:00 AM EST Office Visit [facility]ULT [facility] [address] [place] [address] Alex Self Health Maintenance Due Date Last Done Comments Family Planning (PISQ) 08/04/1999 Hepatitis A Vaccines (1 of 2 - Risk 2-dose series) 08/04/2003 Pneumococcal Vaccine: Pediatrics (0 to 5 Years) and At-Risk Patients (6 to 49) Years (1 of 2 - PCV) 08/04/2003 Dental Oral Exam 02/17/2023 08/16/2022 Dental Prophylaxis 02/17/2023 08/16/2022 Hepatitis B Vaccines (3 of 3 - 19+ 3-dose series) 06/15/2023 01/13/2023, 12/13/2022 Dental X-Ray: Bitewings 08/18/2023 08/16/2022 COVID-19 Vaccine ( - season) 2025 Influenza Vaccine (#1) 2025 Dental X-Ray: Full Mouth 08/17/2025 08/16/2022 Alcohol/Substance Use Screening 11/19/2025 11/19/2024 Depression Screening 11/19/2025 11/19/2024, 11/20/19 Disability Screening 11/19/2025 11/19/2024 SDOH Screening 11/19/2025 11/19/2024 Tobacco Screening 11/21/2025 11/21/2024 Lipid Panel 11/19/2029 11/19/2024, 05/03, 06/28/2022, Additional history exists Zoster Vaccines (1 of 2) 2034 DTaP/Tdap/Td Vaccines (3 - Td or Tdap) 11/19/2034 11/19/2024, 06/11/2008 RSV Patients and Patients Aged 60 years or older (1 - 1-dose 75+ series) 08/04/2059 HPV Vaccines Completed 05/16/2022, 08/0 07/2021, 11/01/2021 HIV Screening Completed 06/28/2022 HIB Vaccines Aged Out No longer eligi ble based on patient's age to complete this topic IPV Vaccines Aged Out No longer eligi ble based on patient's age to complete this topic Meningococcal B Vaccine Aged Out No l onger eligible based on patient's age to complete this topic Meningococcal Vaccine Aged Out No harshad carmelo eligible based on patient's age to complete this topic RSV under 20 months Aged Out No longe r eligible based on patient's age to complete this topic Rotavirus Vaccines Aged Out No longer eligible based on patient's age to complete this topic Procedures Procedure Name Priority Date/Time Associated Diagnosis Comments LIPID PANEL, STANDARD Routine 11/19/2024 1:44 PM EDT Essential hypertension PROPHYLAXIS - ADULT Routine 08/16/2022 1 :00 PM EDT Gingivitis INTRAORAL - COMPLETE SERIES OF RADIOGRAPHIC IMAGES Routine 08/16/2022 1:00 PM EDT Examination COMPREHENSIVE ORAL EVALUATION - NEW OR ESTABLISHED PATIENT Routine 08/16/2022 1:00 PM EDT Examination HIV 1/2 ANTIGEN/ANTIBODY, FOURTH GENERATION W/RFL Routine 06/28/2022 9:55 AM EST Health care maintenance from Last 3 Months or Most Recently Relevant to Health Maintenance Results * (ABNORMAL) Lipid Panel, Standard (11/19/2024 1:44 PM EDT) Triglycerides 65 <150 mg/dL [facility] Comment:Desirable Triglyceri de: less than 150 mg/dLBorderline High Triglyceride 150-199 mg/dLHigh Triglyceride: 200-499 mg/dLVery High Triglyceride: greater than or equal to 5OO mg/dL Cholesterol 177 <200 mg/dL [facility] Comment:Desirable Cholestero l: less than 200 mg/dLBorderline High Cholesterol: 200-239 mg/dLHigh Cholesterol: greater than 239 mg/dL LDL Cholesterol Calculated 108(H) <100 mg/dL [facility] Comment:Desirable LDL: less than 100 mg/dLNear Optimal/Above Optimal LDL: 110- 129 mg/dLBorderline High LDL: 130-159 mg/dLHigh LDL: 160-189 mg/dLVery High LDL: greater than or equal to 190 mg/dL HDL Cholesterol 56 >40 mg/dL [facility] Comment:Desirable HDL: great er than 40 mg/dL Note: This HDL assay may give artificially low results in patients with liver disease. Blood Venous blood specimen / Unknown 11/19/2024 1:44 PM EDT 11/19/2024 4:05 PM EDT [facility] LAB BLOOD ORDERABLES Final Re sult [facility] [address] [place] [phone] * HIV-1/2 Antigen and Antibodies, Fourth Generation, with Reflexes (06/28/2022 9:55 AM EST) [facility] HIV Antigen/Antibody, 4th Generation NON-REAC TIVE NON-REAC TIVE [facility] Comment: HIV-1 antigen and HIV-1/HIV-2 antibodies were not detected. There is no laboratory evidence of HIV infection. PLEASE NOTE: This information has been disclosed to you from records whose confidentiality may be protected by state law. If your state requires such protection, then the state law prohibits you from making any further disclosure of the information without the specific written consent of the person to whom it pertains, or as otherwise permitted by law. A general authorization for the release of medical or other information is NOT sufficient for this purpose. For additional information please refer to http://education.[facility].[employer]/faq/SON855 (This link is being provided for informational/ educational purposes only.) The performance of this assay has not been clinically validated in patients less than 2 years old. Blood Venous blood specimen / Unknown 06/28/2022 9:55 AM EST 06/28/2022 9:56 AM EST Narrative [facility] - 07/01/2022 6:40 PM EST FASTING:YES COLLECTION KIT GIVEN TO PATIENT. PATIENT ADVISED TO RETURN. FASTING: YES Namita Melissa Douglas [employer] LAB BLOOD ORDERABLES Final Result [facility] [address] [facility] [place] [address] [facility] [address] [facility], ([address]) [place] [address] from Last 3 Months or Most Recently Relevant to Health Maintenance Insurance [facility] C3 HSN FULL DENTAL-[facility] MEDICAID STAND ADULT DENTAL - HSN FULL (MEDICAID) Care Teams Activities Counselor Relationship Specialty Start Date End Date Haley Pizarro FNP [address] [place] [phone] PCP - General Family Medicine 12/07/21
--- OUTSIDE RECORDS SUMMARY | 2025-03-27 04:48 | XMS_ITS | Encounter Summary ---
Author Organization [employer] Address [address] [place] [address] [address] [place] [address] Care Team Providers Care [employer] Mechanical Name Role Phone Haley Pizarro [facility] Primary Care Provider [phone] Encounter Details Date Type Department Care Team (Late st Contact Info) Description 08/16/[address] [facility] ADULT DENTAL [address] [place] [address] Social History Tobacco Use Types Packs/Day Years Used Date Smoking Tobacco: Every Day Cigarettes Smokeless Tobacco: Never Alcohol Use Standard Drinks/Week Comments Yes 2 (1 standard drink = 0.6 oz pur e alcohol) once a month Sex and Gender Information Value Date Recorded Sex Assigned at Male 04/01/2022 10:17 AM EDT Legal Sex Male 10:17 AM EDT Gender Identity Male 04/01/2022 10:17 AM EDT Sexual Orientation Straight 04/01/2022 10 :17 AM EDT COVID-19 Exposure Response Date Recorded In the last 10 days, have yo u been in contact with someone who was confirmed or suspected to have Coronavirus/COVID-19? No / Unsure 08/16/2022 1:11 PM EDT documented as of this encounter Plan of Treatment Upcoming Encounters Date Type Department Care Team (Late st Contact Info) Description 04/15/2025 11:15 AM EST Office Visit [facility] [address] [place] [address] Haley Pizarro [facility] [address] [place] [address] 04/20/2025 8:00 AM EST Office Visit [facility] ADULT DENTAL [address] [place] [address] Alex Self documented as of this encounter Visit Diagnoses Not on filedocumented in this encounter Additional Health Concerns Assessment Noted Time PHQ-9 Depression Total Score: 0 08/07/19 23 3:28 PM EST documented as of this encounter Care Teams [employer] Relationship Specialty Start Date End Date Haley iPzarro FNP [address] [place] [phone] PCP - General Family Medicine 12/07/21 documented as of this encounter
--- OUTSIDE RECORDS SUMMARY | 2025-03-27 04:48 | XMS_ITS | Encounter Summary ---
Author Organization [employer] Address [address] [place] [address] 7 [place] [address] Care Team Providers Care Respiratory Supervisor Name Role Phone Haley PizarroP Primary Care Provider [phone] Encounter Details Date Type Department Care Team (Latest Contact Info) Description 08/06/2019 Abstract [facility] CONVERSIONS Dental, Provider, DDS Social History Tobacco Use Types Packs/Day Years Used Date Smoking Tobacco: Never Assessed Sex and Gender Information Value Date Recorded Sex Assigned at Male 04/01/2022 10:17 AM EDT Legal Sex Male 10:17 AM EDT Gender Identity Male 04/01/2022 10:17 AM EDT Sexual Orientation Straight 04/01/2022 10 :17 AM EDT documented as of this encounter Plan of Treatment Upcoming Encounters Date Type Department Care Team (Late st Contact Info) Description 04/15/2025 11:15 AM EST Office Visit [facility] [address] [place] [address] Haley Pizarro FNP [address] [place] [address] 04/20/2025 8:00 AM EST Office Visit [facility] ADULT DENTAL [address] [place] [address] Alex Self documented as of this encounter Visit Diagnoses Not on filedocumented in this encounter Care Teams Respiratory Supervisor Relationship Specialty Start Date End Date Haley Pizarro FNP [address] [place] [address] PCP - General Family Medicine 12/07/21 documented as of this encounter
[2025-03-27] MEDS: Diphth,Pertus(ACell),Tet Adult 0.5 ML SYRINGE IM (05:01)
[2025-03-27 05:03] VITALS: BP 136/90; PULSE 87; RESP 16; TEMP 36.7; O2SAT 95
== END 2025-03-27 05:04 | disposition home or self-care (01) ==
PROVIDERS: Emergency Provider Emergency Medicine; PCP Registered Nurse
DX: S61.512A Laceration without foreign body of left wrist, initial encounter (principal); W26.9XXA Contact with unspecified sharp object(s), initial encounter; Y93.9 Activity, unspecified; Y92.9 Unspecified place or not applicable; Y99.8 Other external cause status; Z23 Encounter for immunization
CPT/HCPCS: 12001; 90471; 90715; 99282; 99284